=== PATIENT | female | born 1990 | race Caucasian/White ===

== ENCOUNTER 2018-12-05 17:21 | Emergency (ER) | payer MEDICAID, OTHER ==
[~2018-12-05] VITALS: Ht 160 cm; Wt 81.1 kg
[~2018-12-05 17:21] MED LIST: BEN50 PO; CALC-600 PO; CETI10TA34 PO; DIPH28.32 TOP; FOLI0.4T2 PO; MED4DP PO; PREN1TAB49 PO
[2018-12-05 17:51] VITALS: BP 132/65; PULSE 86; RESP 18; Ht 160 cm; Wt 81.1 kg
== END 2018-12-05 19:11 | disposition home or self-care (01) ==
LOC: E/R 17:21
DX: L03.114 Cellulitis of left upper limb (principal); L03.113 Cellulitis of right upper limb
CPT/HCPCS: 99283

== ENCOUNTER 2018-12-22 20:30 | Emergency (ER) | payer OTHER ==
[~2018-12-22] VITALS: Ht 157.5 cm; Wt 81.1 kg
[2018-12-22 21:15] VITALS: BP 115/69; PULSE 89; RESP 18; Ht 157.5 cm; Wt 81.1 kg
== END 2018-12-22 22:12 | disposition home or self-care (01) ==
LOC: E/R 20:30
DX: S90.562A Insect bite (nonvenomous), left ankle, initial encounter (principal); L29.9 Pruritus, unspecified; S90.561A Insect bite (nonvenomous), right ankle, initial encounter; W57.XXXA Bitten or stung by nonvenomous insect and other nonvenomous arthropods, initial encounter; Y92.9 Unspecified place or not applicable
CPT/HCPCS: 99282